=== PATIENT | female | born 1980 | race Caucasian/White ===

== ENCOUNTER 2019-11-22 17:02 | Emergency (ER) | payer SELFPAY ==
[~2019-11-22] VITALS: Ht 160 cm; Wt 63.0 kg
[2019-11-22 17:30] VITALS: Ht 160 cm; Wt 63.0 kg
[2019-11-22 20:25] VITALS: BP 104/72
== END 2019-11-22 20:25 | disposition home or self-care (01) ==
LOC: ED 17:02
DX: G44.209 Tension-type headache, unspecified, not intractable (principal); E11.9 Type 2 diabetes mellitus without complications
CPT/HCPCS: J1885